=== PATIENT | female | born 1945 | race Caucasian/White ===

== ENCOUNTER → 2019-12-02 | Outpatient (CLI) | payer OTHER | LOC: SJCVC 11:20 | PROVIDERS: ATTEND Internal Medicine | DX: R94.31 Abnormal electrocardiogram [ECG] [EKG] (principal); I44.4 Left anterior fascicular block; I10 Essential (primary) hypertension; E78.5 Hyperlipidemia, unspecified; I65.23 Occlusion and stenosis of bilateral carotid arteries; E11.9 Type 2 diabetes mellitus without complications; I74.01 Saddle embolus of abdominal aorta; I73.9 Peripheral vascular disease, unspecified; Z79.899 Other long term (current) drug therapy; Z87.891 Personal history of nicotine dependence ==

== ENCOUNTER → 2019-12-19 | Outpatient (CLI) | payer OTHER ==
[~2019-12-19] MED LIST: ACETAMINOPHEN325 MG PO; ASPIRIN EC81 M1 PO; CRESTOR20 MG PO; ZESTRIL40 MG PO
== END ==
LOC: SJCVCIMAG 07:53
PROVIDERS: ATTEND Internal Medicine
DX: I65.23 Occlusion and stenosis of bilateral carotid arteries (principal); I71.4 Abdominal aortic aneurysm, without rupture; I74.5 Embolism and thrombosis of iliac artery; I10 Essential (primary) hypertension; E78.00 Pure hypercholesterolemia, unspecified; E11.9 Type 2 diabetes mellitus without complications; I77.1 Stricture of artery; Z79.899 Other long term (current) drug therapy; Z87.891 Personal history of nicotine dependence

== ENCOUNTER → 2019-12-24 | Outpatient (CLI) | payer OTHER ==
[~2019-12-24] VITALS: Ht 154.9 cm; Wt 61.2 kg
[2019-12-24 07:30] VITALS: BP 133/52
[2019-12-24 07:38] LABS: HEMATOCRIT 44.3 % (37.0-47.0); HEMOGLOBIN 14.8 gm/dL (12.0-15.0); MCH 31.7 pg (26.0-34.0); MCHC 33.3 g/dL (28.0-37.0); MCV 94.9 fL (80.0-100.0); RBC 4.66 mil/uL (4.20-5.00); RDW 14.2 % (10.5-14.5); WBC 11.3 thou/uL (4.0-11.0)
[2019-12-24 07:39] LABS: CREATININE 1.3 mg/dL (0.6-1.0); POTASSIUM 4.4 mmol/L (3.5-5.1)
== END | disposition home or self-care (01) ==
LOC: CATH 06:45
PROVIDERS: ATTEND Nuclear Medicine Nuclear Cardiology
DX: I70.213 Atherosclerosis of native arteries of extremities with intermittent claudication, bilateral legs (principal); I70.1 Atherosclerosis of renal artery; I70.0 Atherosclerosis of aorta; R10.30 Lower abdominal pain, unspecified; R22.9 Localized swelling, mass and lump, unspecified; I10 Essential (primary) hypertension; K55.1 Chronic vascular disorders of intestine; I25.10 Atherosclerotic heart disease of native coronary artery without angina pectoris; E78.00 Pure hypercholesterolemia, unspecified; E11.9 Type 2 diabetes mellitus without complications; E78.5 Hyperlipidemia, unspecified; Z98.890 Other specified postprocedural states; Z79.899 Other long term (current) drug therapy; Z79.4 Long term (current) use of insulin; Z87.891 Personal history of nicotine dependence; Z79.82 Long term (current) use of aspirin

== ENCOUNTER → 2020-01-21 | Outpatient (CLI) | payer OTHER | LOC: CAT 12-12 11:40 | PROVIDERS: ATTEND Internal Medicine | DX: Z87.891 Personal history of nicotine dependence (principal); I70.0 Atherosclerosis of aorta; M47.815 Spondylosis without myelopathy or radiculopathy, thoracolumbar region; M41.85 Other forms of scoliosis, thoracolumbar region ==

== ENCOUNTER → 2020-03-26 | Outpatient (CLI) | payer OTHER | LOC: SJCVCIMAG 08:08 | PROVIDERS: ATTEND Internal Medicine | DX: I71.4 Abdominal aortic aneurysm, without rupture (principal); E78.00 Pure hypercholesterolemia, unspecified; I70.213 Atherosclerosis of native arteries of extremities with intermittent claudication, bilateral legs; I74.09 Other arterial embolism and thrombosis of abdominal aorta; E78.5 Hyperlipidemia, unspecified; Z95.828 Presence of other vascular implants and grafts; Z87.891 Personal history of nicotine dependence ==

== ENCOUNTER → 2020-04-13 | Outpatient (CLI) | payer OTHER | LOC: SJCVC 13:51 | PROVIDERS: ATTEND Nuclear Medicine Nuclear Cardiology | DX: I73.9 Peripheral vascular disease, unspecified (principal); I71.4 Abdominal aortic aneurysm, without rupture; I10 Essential (primary) hypertension; I77.1 Stricture of artery; I77.9 Disorder of arteries and arterioles, unspecified; E78.00 Pure hypercholesterolemia, unspecified; E11.9 Type 2 diabetes mellitus without complications; E78.5 Hyperlipidemia, unspecified; Z79.82 Long term (current) use of aspirin; Z79.899 Other long term (current) drug therapy; Z87.891 Personal history of nicotine dependence ==

== ENCOUNTER → 2020-07-27 | Outpatient (CLI) | payer OTHER | LOC: SJCVCIMAG 07:45 | PROVIDERS: ATTEND Internal Medicine | DX: R94.31 Abnormal electrocardiogram [ECG] [EKG] (principal); I65.23 Occlusion and stenosis of bilateral carotid arteries; R93.1 Abnormal findings on diagnostic imaging of heart and coronary circulation; I10 Essential (primary) hypertension; E78.5 Hyperlipidemia, unspecified; E11.9 Type 2 diabetes mellitus without complications; I74.09 Other arterial embolism and thrombosis of abdominal aorta; I71.4 Abdominal aortic aneurysm, without rupture; I73.9 Peripheral vascular disease, unspecified; Z79.82 Long term (current) use of aspirin; Z72.89 Other problems related to lifestyle; Z88.6 Allergy status to analgesic agent ==

== ENCOUNTER → 2021-01-26 | Outpatient (CLI) | payer OTHER | LOC: CAT 12:58 | PROVIDERS: ATTEND Internal Medicine | DX: J43.9 Emphysema, unspecified (principal); I70.8 Atherosclerosis of other arteries; F17.210 Nicotine dependence, cigarettes, uncomplicated; Z12.2 Encounter for screening for malignant neoplasm of respiratory organs ==

== ENCOUNTER → 2021-04-12 | Outpatient (CLI) | payer OTHER | LOC: SJCVCIMAG 08:49 | PROVIDERS: ATTEND Nuclear Medicine Nuclear Cardiology | DX: I65.23 Occlusion and stenosis of bilateral carotid arteries (principal); I71.4 Abdominal aortic aneurysm, without rupture; R93.1 Abnormal findings on diagnostic imaging of heart and coronary circulation; I10 Essential (primary) hypertension; E78.5 Hyperlipidemia, unspecified; E11.9 Type 2 diabetes mellitus without complications; I74.09 Other arterial embolism and thrombosis of abdominal aorta; E78.00 Pure hypercholesterolemia, unspecified; I73.9 Peripheral vascular disease, unspecified; I77.1 Stricture of artery; I77.9 Disorder of arteries and arterioles, unspecified; Z88.8 Allergy status to other drugs, medicaments and biological substances; Z79.82 Long term (current) use of aspirin; Z79.899 Other long term (current) drug therapy; Z72.89 Other problems related to lifestyle; Z87.891 Personal history of nicotine dependence ==